=== PATIENT | male | born 2000 | race Caucasian/White ===

== ENCOUNTER 2022-02-27 18:33 | Emergency (ER) | payer MEDICAID ==
[~2022-02-27] VITALS: Ht 170.2 cm; Wt 49.9 kg
--- NOTE | 2022-02-27 19:21 | NUR ---
Femi marks in [facility] - 02/27/22 at [id number] by [id number] Aftter being triaged, patient was placed back in the waiting room due to no beds vaialble in the ER.
--- NOTE | 2022-02-27 23:35 | NUR ---
Patient placed in room 5A at this time.
--- NOTE | 2022-02-27 23:40 | NUR ---
Patient placed in hallway due to no beds available in the ER.
--- NOTE | 2022-02-28 01:45 | NUR ---
Dr. Polo at bedside. MSE in progress.
[2022-02-28 03:32] LABS: *BILIRUBIN,URIN NEGATIVE (NEGATIVE); *BLOOD, URINE NEGATIVE (NEGATIVE); *CLARITY,URINE CLEAR (CLEAR); *COLOR,URINE YELLOW (YELLOW); *KETONES,URINE 2+ (NEGATIVE); *UROBILINOGEN,URINE 0.2 E.U./dl (NORMAL); LEUKOCYTE ESTERASE ,URINE NEGATIVE (NEGATIVE); NITRITE, URINE NEGATIVE (NEGATIVE); UGLUCOSE NEGATIVE (NEGATIVE)
[2022-02-28 03:46] LABS: BACTERIA,URINE NONE SEEN /HPF (NONE SEEN); RBC,URINE 0-3 /HPF (0-3); SQUAMOUS EPITHELIAL CELL,UR FEW /HPF (NONE SEEN); WBC,URINE 0-3 /HPF (0-3)
--- NOTE | 2022-02-28 03:50 | NUR ---
Patient discharged to home in stable condition. A/O x4. NAD noted. Ambulatory with steady gait. All belongings with patient. Written and verbal after care instructions given. Patient verbalizes understanding of instructions. Stressed follow up or return to ER for worsening s/s.
[2022-02-28 04:00] VITALS: BP 114/55
== END 2022-02-28 03:50 | disposition home or self-care (01) ==
LOC: ER 18:50
DX: N43.3 Hydrocele, unspecified (principal)
CPT/HCPCS: 76870; A4663